=== PATIENT | male | born 1990 | race Caucasian/White ===

== ENCOUNTER 2016-07-25 12:43 | Emergency (ER) | payer OTHER ==
[2016-07-25 13:11] VITALS: TEMP 98.2
--- NOTE | 2016-07-25 14:39 | UCPHY ---
H & P Time Seen by Provider: 07/25/16 14:20 Patient Type: Established HPI/ROS: HPI: 26-year-old male presents to urgent care with chief concern right hip injury that resulted in bruising, swelling, right groin and right testicular pain. He fell on his right side snowboarding 1 week ago. Over the past 3 days he has developed significant ecchymosis and swelling of the right hip into the right groin and right testicle. Swelling increased yesterday. Pain is 6/10. No aggravating or alleviating factors. No right lower extremity pain or swelling. No recent long car or plane travel. Denies fever, chills, head injury , neck or back pain, shortness of breath, chest pain, abdominal pain, nausea, vomiting, flank pain, hematuria, low back pain, weakness or numbness of the lower extremities. No personal or family history of coagulopathy. ROS:10 point review of systems is negative other than as stated in HPI Past Medical/Surgical History: Kidney injury Smoking Status: Never smoked Physical Exam: Vital signs stable, reviewed by me General: Awake, alert, calm, cooperative. No acute distress. Head: Normalocephalic. Atraumatic. Face: Atraumatic EENT: PERRLA. EOMI. No pallor or injection. Anicteric. No nystagmus. No injection. TMs intact bilaterally with normal landmarks. Mouth: Atraumatic, no dental occlusion Neck: Supple, nontender. No lymphadenopathy. Full range of motion. No midline tenderness Respiratory: Breathing unlabored. Breath sounds equal bilaterally and clear to auscultation. No adventitious sounds. CV: Chest nontender, atraumatic. Heart rate regular. No murmur, distal pulses 2+ bilaterally. Brisk cap refill all extremities. GI: Abdomen soft, nontender. Bowel sounds normoactive and positive x4 quadrants. : No CVA or flank tenderness. Back: No midline thoracic or lumbar tenderness Neuro: Alert. Oriented x 3. Speech clear. Nonfocal cranial nerves throughout. Sensation intact all extremities. Skin: Skin warm, dry, intact. Moderate ecchymosis and swelling of the right lateral hip extending into the right groin. Mild ecchymosis and swelling of the right testicle. Mild tenderness to palpation of this. Skin turgor normal. Extremities: Full range of motion in all 4 extremities. Minimal discomfort with range of motion of the right hip. No deformity. Gait is normal. Strength 5+ all extremities. No calf pain or swelling. Negative Homans bilaterally. Constitutional: Initial Vital Signs Temperature (C) 36.8 C 07/25/16 13:07 Heart Rate 64 07/25/16 13:07 Respiratory Rate 14 07/25/16 13:07 Blood Pressure 145/62 H 07/25/16 13:07 O2 Sat (%) 98 07/25/16 13:07 O2 Delivery Mode Room Air Allergies/Adverse Reactions: No Known Allergies Allergy (Verified 07/25/16 13:11) Home Medications: Medication Instructions Recorded NK [No Known Home Meds] 07/25/16 Medical Decision Making - Diagnostics Imaging: Ultrasound negative for testicular injury or DVT. Discussed this with radiologist luciano Parisi. Final report pending at time this dictation ED Course/Re-evaluation: 26-year-old male presents to urgent care with increased swelling and pain to the right groin and testicle over the past several days. He develops significant ecchymosis several days ago after a right hip injury when he fell on his right hip snowboarding a week ago. Ecchymosis developed 3-4 days ago. Swelling worsened yesterday with increased pain and swelling of the right groin and right testicle. Ultrasound will be performed to rule out DVT and testicular torsion. Differential Diagnosis: Differential diagnosis includes but is not limited to ecchymosis, hematoma, DVT , testicular torsion Departure - Departure Disposition: Home, Routine, Self-Care Clinical Impression: Hematoma, Testicular pain, right Condition: Good Instructions: Hematoma (ED), Testicle Pain (ED) Additional Instructions: Plan: Ultrasound is negative for DVT or testicular injury You may use 600 mg of ibuprofen every 6 hours for fever, inflammation, or pain. Always take ibuprofen with food and stay well hydrated while taking. Do not exceed the maximum allowable dose in a 24 hour period which is 2400 mg. ice every 1-2 hours for 20 minutes for the the next 2-3 days Wear testicular support while up and about Gentle [id number] Follow up with primary care provider for recheck by the end of the week--When you call to schedule appointment, please let the office know you are an "ER follow up" appointment" Referrals: GREG VARELA [Primary Care Provider] - As per Instructions - PQRS PQRS Measurement: Not applicable
--- NOTE | 2016-07-25 15:08 | US ---
Right Lower Extremity Ultrasound and Venous Duplex Doppler Study History: Recent snowboarding accident, right groin ecchymosis. Comparison: None available. Technique: High frequency transducer was used for imaging and Doppler study of the veins of the lowe r extremity. Pulsed Doppler and color Doppler were utilized, along with various maneuvers to assess flow in the veins. Findings: The deep veins of the lower extremity are normally compressible between the groin and the upper calf and have normal Doppler waveforms within them. No venous thrombosis is identified. Impression: No evidence of deep vein thrombosis. Findings discussed with Araceli Koch today at 1505 hours.
--- NOTE | 2016-07-25 15:09 | US ---
Scrotal Ultrasound History: Recent snowboarding accident, with right scrotal pain and swelling. Comparison: None available. Findings Right: The right testicle has homogeneous echotexture, with no discrete masses, measuring 4.6 x 3.5 x 2.7 cm. Normal arterial blood flow is present in the testicle. The right epididymis has normal ec hotexture. There is no hydrocele or varicocele. Left: The left testicle has homogeneous echotexture, with no discrete masses, measuring 4.4 x 3.4 x 2.6 cm. Normal arterial blood flow is present in the testicle. The left epididymis has normal echot exture. There is no hydrocele or varicocele. Blood flow is symmetric, with no evidence of hyperemia. Impression: Normal scrotal ultrasound. Findings discussed with Araceli Koch N.P., on July 25, 2016 at 1505 hours.
[2016-07-25 15:35] VITALS: BP 141/82; PULSE 77; RESP 16; O2SAT 95
== END 2016-07-25 15:30 | disposition home or self-care (01) ==
LOC: CED 12:43
DX: S30.22XA Contusion of scrotum and testes, initial encounter (principal); V00.311A Fall from snowboard, initial encounter; Y93.23 Activity, snow (alpine) (downhill) skiing, snowboarding, sledding, tobogganing and snow tubing
CPT/HCPCS: 76870-PO; 93971-PO; 99214-PO; G0463-PO

== ENCOUNTER → 2016-07-30 | Emergency (ER) | payer OTHER ==
[~2016-07-30] MED LIST: HYDROCOD/APAP 5/325 PREPACK#6 BTL TAKEHOME ONE
[2016-07-30 15:23] VITALS: BP 134/55; PULSE 76; RESP 17; TEMP 97.7; O2SAT 97
--- NOTE | 2016-07-30 18:07 | DX ---
Right hip, 2 views. History: Right hip pain. Findings: Normal mineralization and alignment. No evidence for acute fracture or dislocation. No sign ificant joint narrowing, periarticular erosion, periarticular spurring. Impression: Normal radiograph right hip.
--- NOTE | 2016-07-30 18:16 | UCPHY ---
H & P Time Seen by Provider: 07/30/16 17:31 Patient Type: Established HPI/ROS: 5 days ago this patient presented with hematoma to the right hip after a fall snowboarding when he crashed from taking a jump at [place] 10 days ago. He had a negative sonogram for DVT and also testicular sonogram that was negative. He reports he has had increased swelling since going climbing yesterday came back in for evaluation. He reports moderate discomfort that worsens with movement or walking. At baseline the pain is 4/10 but it becomes moderate to severe with certain movements. ROS: No fevers or chills. No other constitutional symptoms. Cardiovascular: No calf swelling or pain. Pulmonary: No shortness of breath or chest pain musculoskeletal: No significant injuries. Neuro: No numbness or tingling. 7 point ROS is otherwise negative Past Medical/Surgical History: Healthy sites this recent fall with right Smoking Status: Never smoked Physical Exam: Physical Exam Vital signs are normal. General: 26-year-old male No acute distress HEENT: Atraumatic. Eyes: Pupils equal and react to light. Extraocular motions are intact. Lungs: No respiratory distress. Cardiac: Brisk capillary refill is intact throughout. Pulses are 2+ and symmetric in the affected extremity. Skin: No rash or pallor. Extremities: Atraumatic normal except for right hip. Right hip: Patient has significant hematoma that is approximately softball sized to the region between the right anterior superior iliac crest on the right lateral hip/greater trochanter. Appreciate no instability with anterior pressure to pubic rami pelvic Brims. There is mild to moderate tenderness to the hematoma. He also has some pain with passive external rotation and flexion of the hip. There is no foreshortening of the leg. Neuro: Alert with no sensorimotor deficits. Initial differential diagnosis: Traumatic hematoma, fracture Constitutional: Initial Vital Signs Temperature (C) 36.5 C 07/30/16 15:20 Heart Rate 76 07/30/16 15:20 Respiratory Rate 17 07/30/16 15:20 Blood Pressure 134/55 H 07/30/16 15:20 O2 Sat (%) 97 07/30/16 15:20 O2 Delivery Mode Room Air Allergies/Adverse Reactions: No Known Allergies Allergy (Verified 07/30/16 15:20) Home Medications: Medication Instructions Recorded Hydrocodone/APAP 5/325 [[place] 1 - 2 tab PO Q4PRN PRN #12 tab 07/30/16 5/325 (*)] MDM/Departure - MDM Diagnostics: Right hip fracture: Negative for fracture by my interpretation. I also discussed this with the radiologist, Dr. Li who agrees this is a negative film. Medications Given: Discontinued Medications Acetaminophen/Hydrocodone Bitart ([place] 5/325mg Prepack#6) 1 btl TAKEHOME EDNOW ONE Stop: 07/30/16 18:17 Last Admin: 07/30/16 18:31 Dose: 1 btl ED Course/Re-evaluation: I counseled the patient regarding hematoma. I encouraged him to hold off on vigorous activity until hematoma improves. Also encouraged him not to apply heat to the area which she had been doing over the past 24 hours. Suggested ice instead. - Depart Disposition: Home, Routine, Self-Care Clinical Impression: Hip hematoma, right Qualifiers: Encounter type: subsequent encounter Qualifier Code: (S70.01XD) Contusion of right hip, subsequent encounter Instructions: Hematoma (ED) Additional Instructions: Diagnosis: Traumatic hematoma right hip Plan: Continue with ice Avoid prolonged heat Limit activity until symptoms resolve Ibuprofen for discomfort as needed Vicodin or Tylenol in addition as needed. No driving, alcohol or come Vicodin. Follow up with the orthopedic physician for any ongoing symptoms Prescriptions: Hydrocodone/APAP 5/325 [[place] 5/325 (*)] 1 - 2 tab PO Q4PRN PRN #12 tab PRN Reason: Pain Referrals: GREG VARELA [Primary Care Provider] - As per Instructions Clyde Donald MD [Medical Doctor] - As per Instructions - PQRS PQRS Measurement: NA
== END | disposition home or self-care (01) ==
LOC: CED 14:50
DX: S70.01XD Contusion of right hip, subsequent encounter (principal); V00.311A Fall from snowboard, initial encounter
CPT/HCPCS: 73502-PO; 99214-PO; G0463-PO